=== PATIENT | female | born 1970 | race Two or more races ===

== ENCOUNTER 2020-07-24 15:48 | Emergency (ER) | payer MEDICAID, OTHER ==
[~2020-07-24] VITALS: Ht 154.9 cm; Wt 77.1 kg
[2020-07-24 19:07] VITALS: BP 147/95
[2020-07-24] MEDS ORDERED: KETOROLAC TROMETH 60MG/2ML VIAL IM ONE (19:30)
[2020-07-24] MEDS ORDERED: cefTRIAXone SOD 1,000 MG VL IM ONE (19:30)
== END 2020-07-24 20:15 | disposition home or self-care (01) ==
LOC: ER 15:48
DX: L02.811 Cutaneous abscess of head [any part, except face] (principal); R51.9 Headache, unspecified
CPT/HCPCS: 96372; 99284; J0696; J1885

== ENCOUNTER 2020-10-02 15:38 | Emergency (ER) | payer MEDICAID, OTHER ==
[~2020-10-02] VITALS: Ht 154.9 cm; Wt 81.6 kg
[2020-10-02 15:53] VITALS: BP 155/100
[2020-10-02] MEDS ORDERED: SODIUM CHLORIDE 0.9% 2,450 ML IV ONE (16:30)
[2020-10-02] MEDS ORDERED: METOCLOPRAMIDE HCL 5MG/ml INJ 2ml VIAL IV ONE (16:30)
[2020-10-02] MEDS ORDERED: ACETAMINOPHEN 325 MG TAB PO ONE (16:30)
[2020-10-02] MEDS ORDERED: KETOROLAC TROMETH 30 MG/ML 1ML VIAL IV ONE (16:30)
== END 2020-10-03 02:07 | disposition home or self-care (01) ==
LOC: ER 15:38
DX: R51.9 Headache, unspecified (principal); F17.210 Nicotine dependence, cigarettes, uncomplicated; Z20.822 Contact with and (suspected) exposure to COVID-19; Z90.710 Acquired absence of both cervix and uterus
CPT/HCPCS: 36415; 87426; 96361; 96374; 96375; 99284; J1885; J2765

== ENCOUNTER 2022-03-24 16:12 | Emergency (ER) | payer MEDICAID ==
[~2022-03-24] VITALS: Ht 154.9 cm; Wt 78.9 kg
[2022-03-24 19:38] VITALS: BP 125/85
== END 2022-03-24 22:15 | disposition home or self-care (01) ==
LOC: ER 16:12
DX: S90.32XA Contusion of left foot, initial encounter (principal); F17.210 Nicotine dependence, cigarettes, uncomplicated; Z90.710 Acquired absence of both cervix and uterus; W18.39XA Other fall on same level, initial encounter; Y93.89 Activity, other specified; Y92.89 Other specified places as the place of occurrence of the external cause; Y99.8 Other external cause status
CPT/HCPCS: 73630